=== PATIENT | male | born 1950 | race Caucasian/White ===

== ENCOUNTER 2019-05-26 11:15 | Inpatient (IN) | payer OTHER | END 2019-05-28 17:12 | disposition home health service (06) | LOC: JER 11:15 → JERBED 16:42 → J4W 18:35 ==

== ENCOUNTER 2019-07-23 18:53 | Emergency (ER) | payer OTHER ==
[2019-07-23 19:06] VITALS: BP 169/57; PULSE 83; TEMP 97.9; BMI 31.3
--- NOTE | 2019-07-23 19:24 | PDOC ---
History of Present Illness - General Chief Complaint: Pain Stated Complaint: BACK PAIN Time Seen by Provider: 07/23/19 19:12 - History of Present Illness Initial Comments: 07/23/19 19:16 CHIEF COMPLAINT: left lower back pain HISTORY OF PRESENT ILLNESS: 68 yo M h/o stroke, IDDM, CAD s/p angioplasty, HLD , HTN presents to ED with pain to left lower back since yesterday after getting an MRI. Patient states after he got the MRI he felt pain to his lower back radiating down his left leg. Patient reports pain is worsened with movement. Patient describes the pain as a "tightness" and "shooting", denies any weakness. Patient is ambulatory with a cane in the ED. Allergies: NKA Surgical History: Appendectomy and Cardiac Stents Social History: Former Tobacco User (x7 years ago) PCP: Dr. Tam No recent travel or sick contacts. PAST MEDICAL HISTORY: Denies past medical history FAMILY HISTORY: Denies SOCIAL HISTORY: Denies tobacco, alcohol, illicit drug use. SURGICAL HISTORY: Denies ALLERGIES: No known drug allergies REVIEW OF SYSTEMS General/Constitutional: Denies fever or chills. Denies weakness, weight change. HEENT: Denies change in vision. Denies ear pain or discharge. Denies sore throat. Cardiovascular: Denies chest pain or shortness of breath. Respiratory: Denies cough, wheezing, or hemoptysis. Gastrointestinal: Denies nausea, vomiting, diarrhea or constipation. Denies rectal bleeding. Genitourinary: Denies dysuria, frequency, or change in urination. Musculoskeletal: Left lower back pain radiating to L lower extremity. Denies joint or muscle swelling or pain. Skin and breasts: Denies rash or easy bruising. Neurologic: Denies headache, vertigo, loss of consciousness, or loss of sensation. Psychiatric: Denies depression or anxiety. PHYSICAL EXAM General Appearance: Well-appearing, appropriately dressed. No apparent distress , no intoxication. HEENT: EOMI, PERRLA, normal ENT inspection, normal voice, TMs normal, pharynx normal. No conjunctival pallor. No photophobia, scleral icterus. Neck: Supple. Trachea midline. No tenderness, rigidity, carotid bruit, stridor , lymphadenopathy, or thyromegaly. Respiratory/Chest: Lungs CTAB. No shortness of breath, chest tenderness, respiratory distress, accessory muscle use. No crackles, rales, rhonchi, stridor , wheezing, dullness Cardiovascular: RRR. S1, S2. No JVD, murmur, bradycardia, tachycardia. Vascular Pulses: Dorsalis-Pedis (R): 2+, Dorsalis-Pedis (L): 2+ Gastrointestinal/Abdominal: Normal bowel sounds. Abdomen soft, non-distended. No tenderness or rebound tenderness. No organomegaly, pulsatile mass, guarding , hernia, hepatomegaly, splenomegaly. Lymphatic: No adenopathy, tenderness. Musculoskeletal/Extremities: Reproducible tenderness to L paravertebral muscle at level of L4-L5. FROM of all extremities, normal capillary refill. Pelvis Stable. No CVA tenderness. No tenderness to extremities, pedal edema, swelling , erythema or deformity. Integumentary: Appropriate color, dry, warm. No cyanosis, erythema, jaundice or rash Neurologic: case resource manager II-XII intact. Fully oriented, alert. Appropriate mood/affect. Motor strength 5/5. No appreciable EOM palsy, facial droop or sensory deficit. Past History - Past Medical History Allergies/Adverse Reactions: Allergies Allergy/AdvReac Type Severity Reaction Status Date / Time No Known Drug Allergies Allergy Verified 07/23/19 19:06 Home Medications: Ambulatory Orders Glipizide [Glipizide Xl] 5 mg PO BID 04/17/16 metFORMIN HCL [Metformin ER Osmotic] 1,000 mg PO BID 04/17/16 Insulin Lispro [Humalog Kwikpen U-100] 100 unit SQ AC 05/26/19 Metoprolol Tartrate [Lopressor] 50 mg PO DAILY 05/26/19 Atorvastatin Ca [Lipitor] 80 mg PO HS #30 tablet 05/28/19 Clopidogrel Bisulfate [Plavix -] 75 mg PO DAILY #30 tablet 05/28/19 Lisinopril 20 mg PO DAILY #30 tablet 05/28/19 Cyclobenzaprine HCl 5 mg PO HS #10 tablet 07/23/19 Cardiac Disorders: Yes (2 STENTS 4YRS AGO) CVA: Yes COPD: No Diabetes: Yes HTN: Yes Hypercholesterolemia: Yes - Surgical History Appendectomy: Yes Cardiac Surgery: Yes (STENTS) - Immunization History Immunization Up to Date: No - Suicide/Smoking/Psychosocial Hx Smoking History: Never smoked Have you smoked in the past 12 months: No If you are a former smoker, when did you quit?: 7YRS AGO Hx Alcohol Use: No Drug/Substance Use Hx: No Substance Use Type: None Hx Substance Use Treatment: No *Physical Exam - Vital Signs Last Vital Signs Temp Pulse Resp BP Pulse Ox 97.9 F 83 16 169/57 L 96 07/23/19 19:02 07/23/19 19:02 07/23/19 19:02 07/23/19 19:02 07/23/19 19:02 Medical Decision Making - Medical Decision Making 07/23/19 19:33 68 yo M h/o stroke, IDDM, CAD s/p angioplasty, HLD, HTN presents to ED with pain to left lower back since yesterday after getting an MRI. -Toradol IM 07/23/19 21:23 Patient well appearing with no neuro deficits. Advised pt to f/u with ortho if symptoms persist. Discussed with patient and son signs and symptoms for return to ER; patient and son verbalized understanding and agree to plan. *DC/Admit/Observation/Transfer Diagnosis at time of Disposition: Back pain with sciatica - Discharge Dispostion Disposition: HOME Condition at time of disposition: Stable Decision to Admit order: No - Prescriptions Prescriptions: Cyclobenzaprine HCl 5 mg PO HS #10 tablet - Referrals Referrals: Mane Marin DO [Staff Physician] - - Patient Instructions Printed Discharge Instructions: DI for Back Pain With Sciatica Additional Instructions: Please take medications as prescribed. Do NOT drink alcohol, drive, or operate machinery, while taking this medication. If your symptoms persist past 1 week, please follow up with orthopedics for further evaluation. If you develop weakness to one side, slurred speech, difficulty speaking or walking, change in vision, or any new or worsening symptoms, please return to the ER immediately. Print Language: HONG KONGER - Post Discharge Activity
[2019-07-23] MEDS ORDERED: KETOROLAC TROMETHAMINE 60 MG/2 ML VIAL IM ONE (19:28)
[2019-07-23] MEDS ORDERED: KETOROLAC TROMETHAMINE 60 MG/2 ML VIAL ONE (19:34)
== END 2019-07-23 20:01 | disposition home or self-care (01) ==
LOC: JER 18:53
PROC: 3E0233Z Introduction of Anti-inflammatory into Muscle, Percutaneous Approach (ICD-10-PCS; principal; 2019-07-23)
DX: M54.42 Lumbago with sciatica, left side (principal); I25.10 Atherosclerotic heart disease of native coronary artery without angina pectoris; I10 Essential (primary) hypertension; Z95.5 Presence of coronary angioplasty implant and graft; E11.9 Type 2 diabetes mellitus without complications; Z79.4 Long term (current) use of insulin; E78.5 Hyperlipidemia, unspecified; Z86.73 Personal history of transient ischemic attack (TIA), and cerebral infarction without residual deficits; Z79.01 Long term (current) use of anticoagulants; Z87.891 Personal history of nicotine dependence
CPT/HCPCS: 96372; 99282-25

== ENCOUNTER 2019-07-24 15:04 | Emergency (ER) | payer OTHER ==
[2019-07-24 15:14] VITALS: BMI 31.3
[2019-07-24] MEDS ORDERED: LIDOCAINE 5% TOPICAL PATCH TP ONE (16:37)
--- NOTE | 2019-07-24 16:39 | PDOC ---
History of Present Illness - General Chief Complaint: Injury Stated Complaint: FALL Time Seen by Provider: 07/24/19 16:29 History Source: Patient Exam Limitations: No Limitations - History of Present Illness Initial Comments: 07/24/19 16:51 68 yo male CAD (stenting done 2012), HTN, HLD, DM and recent CVA (DC 05/28, residual deficits of left lower ext weakness) presents to the ED after an unwitnessed fall. Pt states while in the kitchen and using his walker, his legs gave out suddenly and fell to his knees. Denies hitting his head, LOC, CONRAD, changes in vision/speech/confusion, neck pain, N/V/F/C, denies CP/Palpitations/ SOB prior to or after the fall. Denies Pt seen yesterday in the ED for left lower back pain with radiation down the leg , sciatica suspected, given toradol in the ED without relief. Pt sent muscle relaxant to Pharmacy but son states insurance will not cover it and did not take the medication. Past History - Past Medical History Allergies/Adverse Reactions: Allergies Allergy/AdvReac Type Severity Reaction Status Date / Time No Known Drug Allergies Allergy Verified 07/23/19 19:06 Home Medications: Ambulatory Orders Glipizide [Glipizide Xl] 5 mg PO BID 04/17/16 metFORMIN HCL [Metformin ER Osmotic] 1,000 mg PO BID 04/17/16 Insulin Lispro [Humalog Kwikpen U-100] 100 unit SQ AC 05/26/19 Metoprolol Tartrate [Lopressor] 50 mg PO DAILY 05/26/19 Atorvastatin Ca [Lipitor] 80 mg PO HS #30 tablet 05/28/19 Clopidogrel Bisulfate [Plavix -] 75 mg PO DAILY #30 tablet 05/28/19 Lisinopril 20 mg PO DAILY #30 tablet 05/28/19 Cyclobenzaprine HCl 5 mg PO HS #10 tablet 07/23/19 Lidocaine 5% Patch [Lidoderm Patch -] 1 patch TP DAILY #7 patch 07/24/19 Methocarbamol [Robaxin -] 500 mg PO BID #14 tablet 07/24/19 Cardiac Disorders: Yes (2 STENTS 4YRS AGO) CVA: Yes COPD: No Diabetes: Yes HTN: Yes Hypercholesterolemia: Yes - Surgical History Appendectomy: Yes Cardiac Surgery: Yes (STENTS) - Immunization History Immunization Up to Date: No - Suicide/Smoking/Psychosocial Hx Smoking History: Never smoked Have you smoked in the past 12 months: No If you are a former smoker, when did you quit?: 7YRS AGO Hx Alcohol Use: No Drug/Substance Use Hx: No Substance Use Type: None Hx Substance Use Treatment: No Review of Systems - Review of Systems Constitutional: No: Chills, Fever HEENTM: No: Blurred Vision, Double Vision Respiratory: No: Shortness of Breath Cardiac (ROS): No: Chest Pain, Edema ABD/GI: No: Constipated, Diarrhea, Nausea, Vomiting : No: Burning, Dysuria, Flank Pain, Hematuria Musculoskeletal: Yes: Back Pain (with radiation down left leg) Neurological: Yes: Numbness, Paresthesia, Unsteady Gait, Other (feelings of leg giving out). No: Dizziness *Physical Exam - Vital Signs Last Vital Signs Temp Pulse Resp BP Pulse Ox 98.9 F 102 H 18 184/102 H 100 07/24/19 15:12 07/24/19 15:12 07/24/19 15:12 07/24/19 15:12 07/24/19 15:12 - Physical Exam General Appearance: Yes: Nourished, Appropriately Dressed. No: Apparent Distress HEENT: positive: EOMI Neck: positive: Supple. negative: Carotid bruit Respiratory/Chest: positive: Lungs Clear, Normal Breath Sounds. negative: Respiratory Distress, Accessory Muscle Use, Crackles, Rales, Rhonchi, Stridor, Wheezing Cardiovascular: positive: Regular Rhythm, Regular Rate, S1, S2. negative: Edema , JVD, Murmur Vascular Pulses: Dorsalis-Pedis (R): 4+, Doralis-Pedis (L): 4+ Gastrointestinal/Abdominal: positive: Flat, Soft. negative: Pulsatile Mass, Protuberent, Distended, Guarding, Rebound, Tenderness Musculoskeletal: negative: CVA Tenderness Extremity: positive: Normal Capillary Refill, Normal Inspection, Other (L3-L5 left lateral tenderness to palpation, positive straight leg raise left ) Integumentary: positive: Normal Color, Dry, Warm Neurologic: positive: middle school math teacher II-XII NML intact, Fully Oriented, Alert, Normal Mood/ Affect, Normal Response, Motor Strength 5/5. negative: Facial Droop, Numbness, Sensory Deficit, Finger to Nose (normal), Confused, Disoriented Medical Decision Making - Medical Decision Making 07/24/19 19:05 68 yo male CAD (stenting done 2012), HTN, HLD, DM and recent CVA (DC 05/28, residual deficits of left lower ext weakness) presents to the ED after an unwitnessed fall. Pt states while in the kitchen and using his walker, his legs gave out suddenly and fell to his knees. Denies hitting his head, LOC, CONRAD, changes in vision/speech/confusion, neck pain, N/V/F/C, denies CP/Palpitations/ SOB prior to or after the fall. Denies Pt seen yesterday in the ED for left lower back pain with radiation down the leg , sciatica suspected, given toradol in the ED without relief. Pt sent muscle relaxant to Pharmacy but son states insurance will not cover it and did not take the medication. vitals WNL EKG NSR with PACs Pt has had difficulty with gait post stroke due to LLE weakness and describes the fall today in full without CP, SOB, palpitations prior to or after fall. No recent illness, vitals WNL. fall described as likely mechanical, no labs required at time Pt admits to sig pain with radiation down left leg and difficulty with ADLs due to it Lumbar CT ordered along with head scan for unwitnessed fall Pt given lidoderm patch, robaxin and percocet for pain in the ED, 30 min after reassessment states sig improvement and pt able to ambulate Head CT neg for fracture or bleed. L spine CT pending Likely DC home with Neurosurgery referral if L spine CT neg for concerning findings s/o to night team for further care and dispo *DC/Admit/Observation/Transfer Diagnosis at time of Disposition: Sciatic leg pain, Fall - Discharge Dispostion Disposition: HOME Condition at time of disposition: Stable Decision to Admit order: No - Prescriptions Prescriptions: Lidocaine 5% Patch [Lidoderm Patch -] 1 patch TP DAILY #7 patch Methocarbamol [Robaxin -] 500 mg PO BID #14 tablet - Referrals Referrals: Ramses Tam MD [Primary Care Provider] - Taiwo Zepeda MD [Staff Physician] - - Patient Instructions Printed Discharge Instructions: How to Prevent Falls, DI for Back Pain With Sciatica Additional Instructions: Please see your Primary Doctor within the next 48 hours. Make an appointment to see the neurosurgeon if your pain, numbness and tingling persist. Return to the ER for new or concerning symptoms including but not limited to: weakness, incontinence, inability to ambulate, headaches, changes in speech or vision, fevers. Thank you - Post Discharge Activity
[2019-07-24] MEDS ORDERED: METHOCARBAMOL 500 MG TABLET PO ONE (17:03)
[2019-07-24] MEDS ORDERED: METHOCARBAMOL 500 MG TABLET ONE (17:40)
[2019-07-24] MEDS ORDERED: LIDOCAINE 5% TOPICAL PATCH ONE (17:41)
--- NOTE | 2019-07-24 18:48 | PDOC ---
Documentation entered by Adrián Castillo SCRIBE, acting as scribe for Marie Stallings MD. Marie Stallings MD: This documentation has been prepared by the Jonathan ta Nirvannie, SCRIBE, under my direction and personally reviewed by me in its entirety. I confirm that the documentation accurately reflects all work, treatment, procedures, and medical decision making performed by me. Attending Attestation - Resident Resident Name: Pete Gavin - ED Attending Attestation I have performed the following: I have examined & evaluated the patient, The case was reviewed & discussed with the resident, I agree w/resident's findings & plan, Exceptions are as noted - HPI HPI: 07/24/19 17:29 The patient is a 68 year old male, with a significant past medical history of CAD (s/p cardiac stenting 2012), HTN, HLD, DM, and CVA (LLE weakness), who presents to the emergency department s/p unwitnessed fall with left leg pain. As per patient, his legs gave out and he subsequently fell down onsetting pain to the LLE. He denies any LOC or head/neck trauma. He denies any acute changes in strength or sensation. He denies any recent fevers, chills, headache or dizziness. He denies any recent nausea, vomiting, diarrhea or constipation. He denies any recent chest pain or shortness of breath. He denies any recent dysuria, frequency, urgency or hematuria. Allergies: NKDA Primary Care Physician: Dr. Gupta - Physicial Exam PE: 07/24/19 17:29 GENERAL: Awake, alert, and fully oriented, in no acute distress HEAD: No signs of trauma EYES: PERRLA, EOMI, sclera anicteric, conjunctiva clear ENT: Auricles normal inspection, hearing grossly normal, nares patent, oropharynx clear without exudates. Moist mucosa NECK: Normal ROM, supple, no lymphadenopathy, JVD, or masses LUNGS: Breath sounds equal, clear to auscultation bilaterally. No wheezes, and no crackles HEART: Regular rate and rhythm, normal S1 and S2, no murmurs, rubs or gallops ABDOMEN: Soft, nontender, normoactive bowel sounds. No guarding, no rebound. No masses EXTREMITIES: Normal range of motion, no edema. No clubbing or cyanosis. No cords, erythema, or tenderness NEUROLOGICAL: Cranial nerves II through XII grossly intact. Normal speech, normal gait. Motor and sensation intact SKIN: Warm, Dry, normal turgor, no rashes or lesions noted SPINE: No midline tenderness, no stepoffs. +Paraspinal soft tissue tenderness L lumbar region
--- NOTE | 2019-07-24 19:38 | PDOC ---
*Physical Exam - Vital Signs Last Vital Signs Temp Pulse Resp BP Pulse Ox 98.9 F 102 H 18 184/102 H 100 07/24/19 15:12 07/24/19 15:12 07/24/19 15:12 07/24/19 15:12 07/24/19 15:12 ED Treatment Course - Medications Given in the ED: ED Medications Discontinued Medications Generic Name Dose Route Start Last Admin Trade Name Kendra PRN Reason Stop Dose Admin Lidocaine 1 patch 07/24/19 16:37 07/24/19 17:51 Lidoderm Patch - TP 07/24/19 16:38 1 patch ONCE ONE Administration Methocarbamol 500 mg 07/24/19 17:03 07/24/19 17:52 Robaxin - PO 07/24/19 17:04 500 mg ONCE ONE Administration Oxycodone/Acetaminophen 1 combo 07/24/19 17:02 07/24/19 17:51 Percocet 5/325 - PO 07/24/19 17:03 1 combo ONCE ONE Administration Medical Decision Making - Medical Decision Making 07/24/19 19:36 Lumbar imaging: degenerative disc L3-L6. No fractures. ok to dc. *DC/Admit/Observation/Transfer Diagnosis at time of Disposition: Sciatic leg pain, Fall - Discharge Dispostion Disposition: HOME Condition at time of disposition: Stable - Prescriptions Prescriptions: Lidocaine 5% Patch [Lidoderm Patch -] 1 patch TP DAILY #7 patch Methocarbamol [Robaxin -] 500 mg PO BID #14 tablet - Referrals Referrals: Ramses Tam MD [Primary Care Provider] - Taiwo Zepeda MD [Staff Physician] - - Patient Instructions Printed Discharge Instructions: How to Prevent Falls, DI for Back Pain With Sciatica Additional Instructions: Please see your Primary Doctor within the next 48 hours. Make an appointment to see the neurosurgeon if your pain, numbness and tingling persist. Return to the ER for new or concerning symptoms including but not limited to: weakness, incontinence, inability to ambulate, headaches, changes in speech or vision, fevers. Thank you - Post Discharge Activity
[2019-07-24 19:47] VITALS: BP 136/62; PULSE 91; TEMP 97.9
[2019-07-24] MEDS ORDERED: LIDOCAINE PATCH REMOVAL MC SCH (22:00)
--- NOTE | 2019-07-25 10:33 | EKG ---
Test Reason : Blood Pressure : / mmHG Vent. Rate : 077 BPM Atrial Rate : 077 BPM P-R Int : 150 ms QRS Dur : 106 ms QT Int : 370 ms P-R-T Axes : -24 -29 019 degrees QTc Int : 418 ms POOR DATA QUALITY, INTERPRETATION MAY BE ADVERSELY AFFECTED SINUS RHYTHM WITH PREMATURE ATRIAL COMPLEXES VOLTAGE CRITERIA FOR LEFT VENTRICULAR HYPERTROPHY CANNOT RULE OUT SEPTAL INFARCT , AGE UNDETERMINED ABNORMAL ECG WHEN COMPARED WITH ECG OF 26-MAY-2019 12:50, MINIMAL CRITERIA FOR SEPTAL INFARCT ARE NOW PRESENT NONSPECIFIC T WAVE ABNORMALITY NOW EVIDENT IN INFERIOR LEADS Confirmed by MARÍA GAN MD ([id number]) on 07/25/2019 10:32:56 AM Referred By: Confirmed By:MARÍA GAN MD
== END 2019-07-24 20:40 | disposition home or self-care (01) ==
LOC: JER 15:04
DX: M54.42 Lumbago with sciatica, left side (principal); W18.39XA Other fall on same level, initial encounter; Y93.89 Activity, other specified; Y92.010 Kitchen of single-family (private) house as the place of occurrence of the external cause; Y99.8 Other external cause status; I25.10 Atherosclerotic heart disease of native coronary artery without angina pectoris; I10 Essential (primary) hypertension; Z95.5 Presence of coronary angioplasty implant and graft; E11.9 Type 2 diabetes mellitus without complications; Z79.4 Long term (current) use of insulin; E78.00 Pure hypercholesterolemia, unspecified; I69.844 Monoplegia of lower limb following other cerebrovascular disease affecting left non-dominant side; Z79.01 Long term (current) use of anticoagulants; Z99.89 Dependence on other enabling machines and devices; Z87.891 Personal history of nicotine dependence
CPT/HCPCS: 70450-TC; 71045-TC-FY; 72131-TC; 93005; 93010; 99281-25